=== PATIENT | female | born 1980 | race African-American/Black ===

== ENCOUNTER 2020-09-26 12:45 | Emergency (ER) | payer SELFPAY ==
[~2020-09-26] VITALS: Ht 157.5 cm; Wt 47.6 kg
[2020-09-26 12:59] VITALS: BP_SYST 102
--- NOTE | 2020-09-26 13:00 | NUR ---
omayra and placed in the waiting room
--- NOTE | 2020-09-26 15:15 | NUR ---
pt left without being seen at this time
== END 2020-09-26 15:15 | disposition left against medical advice (07) ==
LOC: SED 12:45
DX: S09.90XA Unspecified injury of head, initial encounter (principal); W22.8XXA Striking against or struck by other objects, initial encounter; Y93.89 Activity, other specified; Y92.89 Other specified places as the place of occurrence of the external cause; Y99.8 Other external cause status; Z53.21 Procedure and treatment not carried out due to patient leaving prior to being seen by health care provider